=== PATIENT | male | born 1930 | race Caucasian/White ===

== ENCOUNTER 2018-10-16 09:26 | Outpatient (CLI) | payer MEDICARE ==
--- NOTE | 2018-10-16 11:25 | MRI ---
Brain MRI with and without contrast: 10/16/2018 COMPARISON: None HISTORY: Worsening memory loss TECHNIQUE: Multiplanar multisequence MR imaging of the brain obtained with and without contrast FINDINGS: The diffusion weighted imaging demonstrates no evidence for acute infarction. The axial gradient echo imaging demonstrates no evidence for intracranial hemorrhage. There is moderate cerebral volume loss. There are a few scattered foci of increased T2/FLAIR signal w ithin the white matter suggesting minimal small vessel disease. There is mild mucosal thickening involving the posterior ethmoid air cells bilaterally. Arterial flow voids at the axial level of the skull base appear grossly unremarkable on the T2-weighted imaging. The postcontrast imaging demonstrates no abnormal enhancement within the brain parenchyma. IMPRESSION: Cerebral volume loss. No acute findings.
[2018-10-16] MEDS ORDERED: Gadobenate Dimeglumine 529 MG/1 ML (20ML VIAL) ONE (15:54)
== END 2018-10-16 09:27 | disposition home or self-care (01) ==
LOC: SCSMRI 09:26
PROVIDERS: ATTEND Family Medicine
DX: R41.3 Other amnesia (principal)
CPT/HCPCS: 70553; A9577